=== PATIENT | female | born 1995 | race Caucasian/White ===

== ENCOUNTER 2019-07-22 18:51 | Emergency (ER) | payer MEDICAID ==
[~2019-07-22] VITALS: Ht 162.6 cm; Wt 59.0 kg
[2019-07-22 18:54] VITALS: BP 127/76
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
--- NOTE | 2019-07-22 19:15 | NUR ---
RECIVED REPORT ROM FABIOLA ACOSTA. CONTINUATION OF CARE.
[2019-07-22 20:40] VITALS: BP 122/74
--- NOTE | 2019-07-22 20:40 | NUR ---
Patient discharged with v/s stable. Written and verbal after care instructions given and explained. Patient alert, oriented and verbalized understanding of instructions. Ambulatory with steady gait. All questions addressed prior to discharge. ID band removed. Patient advised to follow up with PMD. Rx of HYDROCORTISONE TOPICAL CREAM, HYDROXYZINE HYDROCHLORIDE given. Patient educated on indication of medication including possible reaction and side effects. Opportunity to ask questions provided and answered.
== END 2019-07-22 20:40 | disposition home or self-care (01) ==
LOC: MED 18:51
DX: L50.9 Urticaria, unspecified (principal); Z98.890 Other specified postprocedural states
CPT/HCPCS: 99283

== ENCOUNTER 2021-01-25 10:00 | Emergency (ER) | payer MEDICAID ==
[~2021-01-25] VITALS: Ht 160 cm; Wt 59.0 kg
[2021-01-25 10:03] VITALS: BP 142/66
--- NOTE | 2021-01-25 10:09 | NUR ---
PT TAKEN TO BED 7.
--- NOTE | 2021-01-25 10:20 | NUR ---
25/F presents to ED with c/o vaginal bleeding and abdominal cramping x2 days. Patient states she found out she was 3 weeks ago by a home test, stating she has had worsening nausea and vomiting, and began cramping and spotting two days ago. Patient states 6/10 sharp pain that is constant, worsens when trying to eat. Denies taking anything at home, denies fever, chills, cp or sob, denies urinary symptoms. Patient is A0
--- NOTE | 2021-01-25 10:37 | NUR ---
Ultrasound at bedside.
--- NOTE | 2021-01-25 10:44 | NUR ---
Lab bedside for blood draw
[2021-01-25 11:05] LABS: BASOPHILS % (AUTO) 0.4 % (0.0-2.0); EOSINOPHILS # (AUTO) 0.1 K/uL (0-0.4); EOSINOPHILS % (AUTO) 1.1 % (0.0-4.0); HEMATOCRIT 37.7 % (36-48); HEMOGLOBIN 12.3 g/dL (12.0-16.0); LYMPHOCYTES # (AUTO) 0.8 K/uL (2.5-16.5); LYMPHOCYTES % (AUTO) 11.6 % (20.5-51.1); MEAN CORPUSCULAR HEMOGLOBIN 29 pg (27-31); MEAN CORPUSCULAR HGB CONC 33 g/dL (33-37); MONOCYTES # (AUTO) 0.7 K/uL (0.8-1.0); MONOCYTES % (AUTO) 10.3 % (1.7-9.3); NEUTROPHILS % (AUTO) 76.6 % (42.2-75.2); PLATELET COUNT (AUTO) 162 K/uL (140-450); RED BLOOD CELL COUNT(AUTO) 4.23 MIL/uL (4.20-5.40); RED CELL DISTRIBUTION WIDTH 13.2 % (11.6-13.7); WHITE BLOOD COUNT (AUTO) 6.6 K/uL (4.8-10.8)
[2021-01-25 11:13] LABS: APPEARANCE,URINE CLEAR (CLEAR); BILIRUBIN,URINE NEGATIVE (NEGATIVE); BLOOD, URINE 1+ (NEGATIVE); COLOR,URINE YELLOW (YELLOW); LEUKOCYTE ESTERASE ,URINE 1+ (NEGATIVE); NITRITE, URINE NEGATIVE (NEGATIVE); UGLUCOSE NEGATIVE (NEGATIVE)
[2021-01-25 11:27] LABS: RBC,URINE 0-5 /HPF (0-5)
[2021-01-25] MEDS ORDERED: NITR100C7 PO (11:30)
[2021-01-25] MEDS ORDERED: DOXY1TCP PO (12:08)
[2021-01-25 12:10] VITALS: BP 95/62
--- NOTE | 2021-01-25 12:10 | NUR ---
Patient discharged with v/s stable. Written and verbal after care instructions given and explained. Patient alert, oriented and verbalized understanding of instructions. Ambulatory with steady gait. All questions addressed prior to discharge. ID band removed. Patient advised to follow up with PMD. Rx of macrobid and zofran given. Patient educated on indication of medication including possible reaction and side effects. Opportunity to ask questions provided and answered.
== END 2021-01-25 12:10 | disposition home or self-care (01) ==
LOC: MED 10:00
DX: O20.0 Threatened abortion (principal); O23.91 Unspecified genitourinary tract infection in pregnancy, first trimester
CPT/HCPCS: 36415; 76801; 81001; 81025; 84702; 85025; 86900; 86901; 87086; 99284; Q0092

== ENCOUNTER 2021-02-14 15:19 | Emergency (ER) | payer MEDICAID ==
[~2021-02-14] VITALS: Ht 162.6 cm; Wt 77.1 kg
[~2021-02-14 15:19] MED LIST: DOXY1TCP PO; NITR100C7 PO
[2021-02-14 15:24] VITALS: BP 114/87
--- NOTE | 2021-02-14 15:27 | NUR ---
P TAKEN TO ER BED 11.
--- NOTE | 2021-02-14 15:29 | NUR ---
DR. BENTON AT PT BEDSIDE FOR FURTHER EVALUATION.
--- NOTE | 2021-02-14 15:37 | NUR ---
25 Y/O FEMALE C/O INTERMITTENT N/V WITH LOWER ABD PAIN 4/10 [id number]. PATIENT STATES FOR THE LAST TWO DAYS SHE CANNOT KEEP ANY FOOD OR DRINKS DOWN. DENIES VAGINAL BLEEDING REPORTED. DENIES FEVER/CHILLS. LMP 12/27/20, [id number]. DENIES PMH NKA
[2021-02-14] MEDS ORDERED: ONDANSETRON 4 MG/2 ML VIAL IVP ONE (15:45)
[2021-02-14] MEDS ORDERED: DEXT 5% / NACL 0.9% 500 ML IV ONE (15:45)
--- NOTE | 2021-02-14 15:54 | NUR ---
IV ESTABLISHED TO RIGHT AC 20G, GOOD BLOOD RETURN , COLLECTED LABS GAVE TO TISSUE REWINDER AT PT BEDSIDE.
[2021-02-14 16:16] LABS: BASOPHILS % (AUTO) 0.5 % (0.0-2.0); EOSINOPHILS # (AUTO) 0.1 K/uL (0-0.4); EOSINOPHILS % (AUTO) 0.6 % (0.0-4.0); HEMATOCRIT 40.6 % (36-48); HEMOGLOBIN 13.4 g/dL (12.0-16.0); LYMPHOCYTES # (AUTO) 1.9 K/uL (2.5-16.5); LYMPHOCYTES % (AUTO) 21.3 % (20.5-51.1); MEAN CORPUSCULAR HEMOGLOBIN 29 pg (27-31); MEAN CORPUSCULAR HGB CONC 33 g/dL (33-37); MEAN CORPUSCULAR VOLUME 88.4 fL (80-94); MONOCYTES # (AUTO) 0.5 K/uL (0.8-1.0); MONOCYTES % (AUTO) 5.3 % (1.7-9.3); NEUTROPHILS # (AUTO) 6.4 K/uL (1.8-7.7); NEUTROPHILS % (AUTO) 72.3 % (42.2-75.2); PLATELET COUNT (AUTO) 187 K/uL (140-450); RED BLOOD CELL COUNT(AUTO) 4.59 MIL/uL (4.20-5.40); RED CELL DISTRIBUTION WIDTH 13.5 % (11.6-13.7); WHITE BLOOD COUNT (AUTO) 8.8 K/uL (4.8-10.8)
[2021-02-14 16:47] LABS: ALBUMIN 3.9 g/dL (3.4-5.0); ANION GAP 12.6 (8-16); CARBON DIOXIDE 26.3 mmol/L (21-32); CREATININE 0.6 mg/dL (0.6-1.3); POTASSIUM 3.9 mmol/L (3.5-5.1); TOTAL BILIRUBIN 0.5 mg/dL (0.0-1.0)
--- NOTE | 2021-02-14 16:59 | NUR ---
PT AMBULATED TO RESTROOM FOR UA COLLECTION.
--- NOTE | 2021-02-14 17:21 | NUR ---
PT RESTING IN BED, EYES CLOSED, VISIBLE EQUAL RISE AND FALL OF CHEST, WILL CONTINUE TO MONITOR.
--- NOTE | 2021-02-14 18:11 | NUR ---
US TECH AT PT BEDSIDE.
--- NOTE | 2021-02-14 19:05 | NUR ---
PT RESTING, VSS, WILL CONTINUE TO MONITOR.
--- NOTE | 2021-02-14 19:18 | NUR ---
RECEIVED REPORT FROM KANIKA ACOSTA FOR CONTINUITY OF CARE
--- NOTE | 2021-02-14 19:18 | NUR ---
RECEIVED REPORT FROM KANIKA ACOSTA FOR CONTINUITY OF CARE
--- NOTE | 2021-02-14 19:18 | NUR ---
GAVE REPORT TO DAVE PHILLIPS. TRANSFER OF CARE AT THIS TIME.
--- NOTE | 2021-02-14 19:37 | NUR ---
Patient appears to be resting comfortably in bed- semi fowlers. Vital Signs within normal limits. Respirations even and unlabored. awake and on the phone. safety meaures are in place, placed on monitors, and will continue to monitor patient
[2021-02-14 19:45] LABS: APPEARANCE,URINE CLEAR (CLEAR); BILIRUBIN,URINE NEGATIVE (NEGATIVE); BLOOD, URINE NEGATIVE (NEGATIVE); COLOR,URINE YELLOW (YELLOW); LEUKOCYTE ESTERASE ,URINE NEGATIVE (NEGATIVE); NITRITE, URINE NEGATIVE (NEGATIVE); PH,URINE 6.5 (5.0-9.0); UGLUCOSE NEGATIVE (NEGATIVE)
--- NOTE | 2021-02-14 19:54 | NUR ---
provided patient water per MD orders.
--- NOTE | 2021-02-14 20:19 | NUR ---
IV removed, catheter intact and site benign. Applied folded 4x4 gauze and tape to stop bleeding.
[2021-02-14] MEDS ORDERED: PYRI25TA15 PO (20:22)
[2021-02-14] MEDS ORDERED: DOXY25TA61 PO (20:22)
--- NOTE | 2021-02-14 20:24 | NUR ---
YESENIA Petit at bedside speaking about results with patient.
[2021-02-14 20:32] VITALS: BP 97/58
--- NOTE | 2021-02-14 20:32 | NUR ---
Patient discharged with v/s stable. Written and verbal after care instructions given and explained. Patient alert, oriented and verbalized understanding of instructions. Ambulatory with steady gait. All questions addressed prior to discharge. ID band removed. Patient advised to follow up with PMD. Rx of Unisom and Pyridoxine Hcl given. Patient educated on indication of medication including possible reaction and side effects. Opportunity to ask questions provided and answered.
== END 2021-02-14 20:32 | disposition home or self-care (01) ==
LOC: MED 15:19
DX: O21.0 Mild hyperemesis gravidarum (principal); Z3A.08 8 weeks gestation of pregnancy
CPT/HCPCS: 36415; 76817; 80053; 81003; 84702; 85025; 87086; 96361; 96374; 99285; J2405; Q0092